=== PATIENT | male | born 1955 | race African-American/Black ===

== ENCOUNTER 2023-03-22 16:20 | Emergency (ER) | payer OTHER ==
[~2023-03-22] VITALS: Ht 180.3 cm; Wt 68.0 kg
[2023-03-22 16:23] VITALS: O2SAT 96
[2023-03-22 17:15] LABS: BASOPHILS % 0.3 % (0.0-2.0); EOSINOPHILS % 0.4 % (0.0-5.0); HEMATOCRIT. 41.7 % (42.0-52.0); HEMOGLOBIN. 14.5 g/dL (14.0-18.0); LYMPHOCYTES % 41.5 % (20.0-50.0); MEAN CORPUSCULAR HEMOGLOBIN 32.1 pg (28.0-32.0); MEAN CORPUSCULAR VOLUME 92.4 fL (80.0-94.0); MEAN PLATELET VOLUME 9.2 fl (7.4-10.4); MONOCYTES % 6.6 % (2.0-8.0); NEUTROPHILS % 51.2 % (40.0-76.0); PLATELET 134 x1000/uL (130-400); RED BLOOD CELL COUNT 4.51 mill/uL (4.7-6.1); RED CELL DISTRIBUTION WIDTH 13.1 % (11.6-14.6)
[2023-03-22 17:19] LABS: CHLORIDE 107 mEq/L (98-107)
[2023-03-22 17:21] LABS: D-DIMER 0.23 mg/L FEU (<0.50); INR 1.1; PROTHROMBIN TIME 11.5 sec (9.6-11.0)
[2023-03-22] MEDS ORDERED: ASPIRIN 81MG TABLET PO ONE (18:00)
[2023-03-22] MEDS ORDERED: NITROGLYCERIN 0.4MG TABLET SL SL ONE (18:30)
[2023-03-22 21:29] VITALS: BP 126/83; PULSE 66; RESP 20; TEMP 98.3
== END 2023-03-22 21:44 | disposition short-term general hospital (02) ==
LOC: ER 16:20 → CANBEDREQ 21:48
DX: R07.89 Other chest pain (principal); R55 Syncope and collapse; E78.00 Pure hypercholesterolemia, unspecified; I10 Essential (primary) hypertension
CPT/HCPCS: 36415; 71045; 80053; 83880; 84484; 85025; 85379; 93005; 99285